=== PATIENT | male | born 1980 ===

== ENCOUNTER 2019-09-04 15:45 | Emergency (ER) | payer BC ==
[2019-09-04 16:32] VITALS: BP 125/87
[2019-09-04] MEDS ORDERED: Naproxen TAB* 250 MG PO ONE (16:38)
--- NOTE | 2019-09-04 18:22 | UC ---
Upper Extremity HPI - HPI Summary HPI Summary: 39-year-old male comes in with a chief complaint of right elbow and right fifth finger pain. Patient fell just prior to arrival he tripped and fell from a standing position. Pain is worse at the right elbow. Also has swelling of the right fifth finger. No weakness or numbness but it does hurt to move the right elbow or right fifth finger. Pain does radiate up into the right shoulder. Denies any other significant injury. Denies any loss of consciousness - History of Current Complaint Chief Complaint: UCUpperExtremity Stated Complaint: FALL RIGHT ELBOW AND HAND INJURY Time Seen by Provider: 09/04/19 17:40 Pain Intensity: 7 - Allergies/Home Medications Allergies/Adverse Reactions: Allergies Allergy/AdvReac Type Severity Reaction Status Date / Time No Known Allergies Allergy Verified 09/04/19 16:32 Home Medications: Home Medications Atorvastatin* [Lipitor*] 20 mg PO DAILY 09/04/19 [History Confirmed 09/04/19] Ibuprofen TAB* [Motrin TAB* 800 MG] 800 mg PO Q6H PRN 09/04/19 [History Confirmed 09/04/19] Lisinopril TAB* [Prinivil TAB*] 20 mg PO DAILY 09/04/19 [History Confirmed 09/04] Sertraline* [Zoloft*] 100 mg PO DAILY 09/04/19 [History Confirmed 09/04/19] amLODIPine TAB* [Norvasc 5 mg TAB*] 2.5 mg PO DAILY 09/04/19 [History Confirmed 09/04/19] PMH/Surg Hx/FS Hx/Imm Hx Previously Healthy: Yes Endocrine History: Dyslipidemia Cardiovascular History: Hypertension - Surgical History Surgical History: Yes Surgery Procedure, Year, and Place: skin, vasectomy - Family History Known Family History: Positive: Non-Contributory - Social History Alcohol Use: Daily Substance Use Type: None Smoking Status (MU): Never Smoked Tobacco Review of Systems All Other Systems Reviewed And Are Negative: Yes Constitutional: Positive: Negative Skin: Positive: Other - SEE HPI Eyes: Positive: Negative ENT: Positive: Negative Respiratory: Positive: Negative Cardiovascular: Positive: Negative Gastrointestinal: Positive: Negative Motor: Positive: Other - SEE HPI Neurovascular: Positive: Negative Musculoskeletal: Positive: Other: - SEE HPI Neurological: Positive: Negative Psychological: Positive: Negative Is Patient Immunocompromised?: No Physical Exam Triage Information Reviewed: Yes Appearance: Well-Appearing, Well-Nourished, Pain Distress - Mild with any range of motion of the right hand or elbow. Vital Signs: Initial Vital Signs Temp 98.3 F 09/04/19 16:26 Pulse 90 09/04/19 16:26 Resp 18 09/04/19 16:26 BP 125/87 09/04/19 16:26 Pulse Ox 98 09/04/19 16:26 Vital Signs Reviewed: Yes Eye Exam: Normal Eyes: Positive: Conjunctiva Clear Neck: Positive: Supple, Nontender Respiratory: Positive: No respiratory distress Musculoskeletal: Positive: Other: - Ecchymosis swelling of the right fifth finger. There is normal sensation in the finger normal capillary refill. Normal radial pulse on the right. Without movement of the right wrist and forearm are nontender until you get to the right elbow and the patient is exquisitely tender in the lateral aspect right elbow. Right shoulder and clavicle and scapula are all nontender to palpation. Patient minimizes range of motion of the right shoulder elbow wrist and fingers secondary to pain. Neurological: Positive: Alert Psychological: Positive: Age Appropriate Behavior Skin: Positive: Other - Ecchymosis of the right fifth finger Upper Extremity Course/Dx - Course Course Of Treatment: Peanut Sheller: Pari Sol S, ([id number]) Ticket Puller: LEIDY (LEIDY) Report Date: 09/04/2019 17:40:00 Report Status: Final Start of Report Content Patient Name: CORNELIO IBRAHIM Medical Record#: [id number] Ordering Physician: Christoph Alvarenga MD Acct.#: [id number] : Age: 39 Sex: M Location: [facility] Exam Date: 09/04/19 1716 ADM Status: REG ER Order Information: HAND - RIGHT MINIMUM 3 VIEWS Accession Number: [id number] CPT: 82311 Indication: Hand injury. 3 views of the right hand demonstrates a fracture through the proximal and of the proximal phalanx of the fifth digit. Slight dorsal angulation of the distal fracture fragment is noted. IMPRESSION: Fracture through the shaft and base of the proximal end of the proximal phalanx of the fifth digit with slight dorsal angulation. < Electronically signed by Pari Sol MD in OV> 09/04/191735 Dictated By: Pari Sol MD Dictated Date/Time: 09/04/191734 Transcribed Date/Time: 09/04/191734 Copy to: CC:[facility]; Joie Dejesus MD; Christoph Alvarenga MD Imaging - [facility] Imaging - [facility] [address] [place] [address] ph [phone]) ph ([phone]) ph ([phone]) End of Report Content ========= Peanut Sheller: Pari Sol S, ([id number]) Ticket Puller: LEIDY, (NUANCE) Report Date: 09/04/2019 17:39:00 Report Status: Final Start of Report Content Patient Name: CORNELIO IBRAHIM Medical Record#: [id number] Ordering Physician: Christoph Alvarenga MD Acct.#: [id number] : Age: 39 Sex: M Location: [facility] Exam Date: 09/04/191707 ADM Status: REG ER Order Information: ELBOW RIGHT 3+ VWS Accession Number: [id number] CPT: 03350 Indication: Right elbow pain. 4 views of the right elbow demonstrates fracture of the right capitellum. Overriding of the fracture fragments is noted. There is likely a volar displacement of the fracture fragments with joint effusion. IMPRESSION: Fracture of the capitellum with overriding of the fracture fragments and likely volar displacement. Joint effusion is noted. <Electronically signed by Pari Sol MD in OV> 09/04/191734 Dictated By: Pari Sol MD Dictated Date/Time: 09/04/191732 Transcribed Date/Time: 09/04/191732 Copy to: CC:[facility]; Joie Dejesus MD; Christoph Alvarenga MD Imaging - [facility] Imaging [facility] [address] [address] ph [phone]) ph ([phone] ph ) End of Report Content I discussed the x-rays with the patient. I placed the patient in a posterior elbow splint that extended into an ulnar gutter that included his right fourth and fifth fingers. Patient is neurovascularly intact on initial exam and after placement of splint by myself. I also discussed the elbow x-rays with the orthopedist paleontological helper to ensure that he follow up in 2 days the office was appropriate for the elbow fracture since tomorrow is Thanksgiving. The orthopedist on-call affirmed that a 2 day follow-up is appropriate as long as the patient is neurovascular intact. I discussed all this with the patient and let him know that if he did have any problems with circulation or loss of sensation he needed to get reevaluated again right away. - Differential Dx/Diagnosis Provider Diagnosis: Closed fracture of phalanx of right little finger, Elbow fracture, right Discharge ED - Sign-Out/Discharge Documenting (check all that apply): Patient Departure All imaging exams completed and their final reports reviewed: Yes - Discharge Plan Condition: Stable Disposition: HOME Patient Education Materials: Finger Fracture (ED), Elbow Fracture (ED) Referrals: Joie Dejesus MD [Primary Care Provider] - Keith Scruggs MD [Medical Doctor] - Additional Instructions: FOLLOW UP WITH ORTHOPEDICS. GET REEVALUATED SOONER IF NOT IMPROVED OR WORSE; PAIN, LOSS OF SENSATION OR BLOOD CIRCULATION OR ANY QUESTIONS OR CONCERNS. - Billing Disposition and Condition Condition: STABLE Disposition: Home
--- OUTSIDE RECORDS SUMMARY | 2019-09-10 14:07 | XMS REPORT | Continuity of Care Document ---
:1980 External Reference #:[id number] Author Name ROSA ISELA Singh (transmitted by agent of provider Rachel Valenzuela) Address [address] [facility] [place] [address] Care Team Providers Name Role Phone Joie Dejesus MD - Internal Medicine Care Team Information Field Irrigation Worker Problems Description No Information Available Social History Type Date Description Comments Sex Unknown ETOH Use Occasionally consumes alcohol Tobacco Use Start: Unknown Patient has never smoked Smoking Status Reviewed: 09/06/19 Patient has never smoked Exercise Type/Frequency Exercises sporadically Allergies, Adverse Reactions, Alerts Description No Known Drug Allergies Medications Active Medications SIG Qnty Indications Ordering Provider Date Sertraline HCL 1 po qd 30tabs Unknown 100mg Tablets Lisinopril 1 by mouth every Unknown 20mg Tablets day Amlodipine Besylate 1 by mouth every Unknown 2.5mg day Tablets Multivitamin Adults once daily Unknown Tablets Naproxen Sodium take 1 tab twice Unknown 220mg a day as needed Capsules for pain take with food Atorvastatin Calcium Take 1 Tablet By Unknown 40mg Mouth Every Day Tablets Immunizations Description No Information Available Vital Signs Date Vital Result Comment 09/06/2019 1:34pm Height 71 inches 5'11" Weight 250.00 lb Heart Rate 100 /min BP Systolic 142 mmHg BP Diastolic 90 mmHg Respiratory Rate 18 /min Body Temperature 97.8 F Pain Level 3 BMI (Body Mass Index) 34.9 kg/m2 12/31/2010 11:42am Height 71 inches 5'11" Weight 206.00 lb Heart Rate 80 /min BP Systolic 140 mmHg BP Diastolic 90 mmHg BMI (Body Mass Index) 28.7 kg/m2 Results Description No Information Available Procedures Description No Information Available Medical Devices Description No Information Available Encounters Description No Information Available Assessments Date Code Description Provider 09/06/2019 S42.451A Displaced fracture of lateral condyle of right ROSA ISELA Singh humerus, initial encounter for closed fracture Plan of Treatment Future Appointment(s):09/11/2019 10:00 am - Eleazar Brar MD at [facility]/06/2019 - ALAN Singh42.451A Displaced fracture of lateral condyle of right humerus, initial encounter for closed fractureNew Xrays :CT Extremity Upper Right Wo, Ordered: 09/06/19Follow up:Follow up: First Available melba Brar Functional Status Description No Information Available Mental Status Description No Information Available Referrals Description No Information Available
== END 2019-09-04 19:04 | disposition home or self-care (01) ==
LOC: UCEAST 15:45
DX: S62.616A Displaced fracture of proximal phalanx of right little finger, initial encounter for closed fracture (principal); S42.451A Displaced fracture of lateral condyle of right humerus, initial encounter for closed fracture; M25.421 Effusion, right elbow; W01.0XXA Fall on same level from slipping, tripping and stumbling without subsequent striking against object, initial encounter; Y92.9 Unspecified place or not applicable; I10 Essential (primary) hypertension; E78.5 Hyperlipidemia, unspecified; Z79.899 Other long term (current) drug therapy
CPT/HCPCS: 25600; 99213; A9270-GY; G0463

== ENCOUNTER 2019-09-12 12:41 | Day surgery (SDC) | payer BC ==
[~2019-09-12 12:41] MED LIST: Buffered Lidocaine 1% SYRIN* 1 ML/SYRINGE INTRADERM ONE; Famotidine IV* 10 MG/ML 2 ML (20 mg) IV ONE; Famotidine IV* 10 MG/ML 2 ML (20 mg) ONE; Lactated Ringers 1000 ML Bag* 1,000 ML IV SCH
[2019-09-12] MEDS ORDERED: ceFAZolin 2 GM in NS PREMIX(*) 2 GM/100 ML BAG IVPB ONE (12:48)
[2019-09-12] MEDS ORDERED: Bupivacaine 0.25% SDV* 30 ML ONE ×2 (16:02→19:34)
[2019-09-12] MEDS ORDERED: Midazolam* 1 MG/ML 5 ML VIAL (5 MG) ONE (16:09)
[2019-09-12] MEDS ORDERED: fentaNYL* 50 MCG/ML 2 ML VIAL (100 MCG VIAL) ONE ×3 (16:26→17:50)
[2019-09-12] MEDS ORDERED: Dexamethasone IV* 4 MG/ML 1 ML (4 MG) ONE (16:37)
[2019-09-12] MEDS ORDERED: Ketorolac INJ* 30 MG/ML 1 ML VIAL ONE (16:37)
[2019-09-12] MEDS ORDERED: Lidocaine 2% PF * 5 ML VIAL ONE (16:37)
[2019-09-12] MEDS ORDERED: Propofol* 10 MG/ML 20 ML BTL ONE ×2 (16:37→17:50)
[2019-09-12] MEDS ORDERED: Ondansetron INJ* 2 MG/ML VIAL ONE (16:37)
[2019-09-12] MEDS ORDERED: Midazolam* 1 MG/ML 2 ML VIAL (2 MG) ONE (17:51)
[2019-09-12] MEDS ORDERED: HYDROmorphone INJ* 0.5 MG/0.5 ML SYRINGE ONE ×2 (18:19→19:43)
[2019-09-12] MEDS ORDERED: DiMENhydriNATE IV* 50 MG/ML VIAL IV PUSH PRN (19:10)
[2019-09-12] MEDS ORDERED: Naloxone* 0.4 MG/ML 1 ML VIAL IV PRN (19:10)
[2019-09-12] MEDS ORDERED: HYDROcodone/ACETAMIN 5-325 MG* 1 TAB PO PRN (19:10)
[2019-09-12] MEDS ORDERED: HYDROcodone/ACETAMIN 5-325 MG* 1 TAB ONE (20:23)
[2019-09-12] MEDS ORDERED: HYDROmorphone INJ1* 1 MG/ML SYRINGE ONE (20:23)
[2019-09-12] MEDS: HYDROmorphone INJ1* 1 MG/ML SYRINGE IV PRN ×5 (20:23→20:49)
[2019-09-12 22:15] VITALS: BP 155/94
--- NOTE | 2019-09-13 03:52 | OP ---
DATE OF OPERATION: 09/12/19 [facility] DATE OF : 84 SURGEON: Eleazar Brar MD CLINICAL QUALITY RN: ROSA ISELA Singh ANESTHESIOLOGIST: Dr. Dawn. ANESTHESIA: General. PRE-OP DIAGNOSES: 1. Right displaced elbow capitellar fracture. 2. Right small finger proximal phalanx displaced fracture. POST-OP DIAGNOSES: 1. Right displaced elbow capitellar fracture. 2. Right small finger proximal phalanx displaced fracture. OPERATIVE PROCEDURE: 1. Open reduction internal fixation of right distal humerus displaced capitellum fracture with mini Acutrak headless compression screws. 2. Open reduction internal fixation of right small finger proximal phalanx fracture. INDICATIONS: Rinku has the aforementioned injuries. I talked about pinning versus plating the finger. I thought that we could probably get him moving earlier and it would help with this rehab, so we went ahead and plated the finger. He understands the risk of stiffness with both injuries as well as multiple other potential risks. He wished to proceed. ESTIMATED BLOOD LOSS: 2 mL. COMPLICATIONS: None. FINDINGS: See above and below. DESCRIPTION OF PROCEDURE: Mr. Graves was seen in the preoperative holding area. The correct side, site, and procedure were identified. We came back to the operating room. The arm was prepped and draped in the usual fashion. A time-out was performed. The arm was exsanguinated with the Esmarch and the tourniquet was inflated to 250 mmHg. I made a lateral incision over the elbow joint. Dissection was carried down. Full-thickness flap was raised. I used a Nahomy approach to stay just anterior to the anconeus to approach the elbow joint. The annular ligament was released. The lateral capsule was opened. The fracture hematoma was evacuated. The soft tissue around the margins of the fracture was removed to expose the fracture edges. The capitulum was reduced and then pinned into place with the guidewires placed percutaneously. Initially, I placed guidewires for a 3.0 Synthes headless compression screw. Once I had the fracture reduced and pinned and clamped, I went ahead and drilled. When attempted to place the first Synthes headless compression screw, it would not go all the way down and so I removed it and decided to go with Acutrak screw. I placed the mini Acutrak screw in the same drill hole as it was the correct size and got excellent bite on that screw. I then drilled the more proximal hole and placed a 22 mini Acutrak screw. These were both size 22. I then drilled one more that was a bit more medial near the piece of the fragment that extended towards the trochlea. The first 2 screws were size 20 mm and then this last one was a 22-mm screw. There was a piece of comminution in the anterior trochlea that was excised. There was some posterior comminution in the capitellar fragment that was all excised. The wound was then irrigated out. Final mini C-arm fluoroscopy confirmed the alignment. The tendon was repaired and the capsule was closed with 0 Vicryl suture. Subcutaneous tissue was reapproximated with 3-0 Vicryl suture. Skin was closed with adali. Tourniquet was deflated as we were at 105 minutes roughly on the tourniquet at this point. The two little poke holes that I used to place the screws, anterior and radial, were closed as well. After a 15-minute tourniquet holiday, I re-exsanguinated the arm and inflated the tourniquet. I made a longitudinal incision over the dorsum of the proximal phalanx. The central slip was incised longitudinally. Subperiosteal dissection exposed the fracture, pulled on the bone to reduce the fracture. I placed a clamp. It was looking good at this point, so I placed a 1.5-mm countersunk lag screw. There was comminution in the base. I checked AP and lateral imaging. This showed good alignment. There was just a small step-off on the anterior most cortex. It was difficult to reach that. It was sitting underneath the tendon sheath. This was difficult to get clamp and had a very nice lag screw. I did not think it was worth changing that for that 1 mm of anterior step-off, so I went ahead and then took a T-plate out of the 1.5-mm tray off the Synthes variable angle hand set and clipped into size, placed 1 screw in the oblong hole. I confirmed the alignment on mini C-arm fluoroscopy. I bent down the 2 wing holes just a little bit so it fit nicely on the bone. I then placed some variable angle locking screws proximally through the comminution in the proximal fragment and then cortical screws distally. Final mini C-arm fluoroscopy revealed good alignment and stable fixation with good screw length. My initial lag screw was 12 mm that was just one too long, so I switched it out for an 11 mm. Clinical alignment was very nice. The wound was irrigated out. The periosteum was closed over the plate to the extent possible with 5-0 Prolene suture. The tendon was repaired with 4-0 Prolene suture with knots buried. Skin was closed with 4-0 nylon. 0.25% Marcaine had been infiltrated about the finger. 0.25% Marcaine was infiltrated about the elbow. Wounds were dressed with Xeroform, 4x4s, sterile Webril, and then a long-arm splint with lateral buttress was applied. He was taken to the recovery room in stable condition. [id number] #: [id number] MTDD
== END 2019-09-12 22:17 | disposition home or self-care (01) ==
LOC: OREAST 12:41
PROVIDERS: ATTEND Orthopaedic Surgery Hand Surgery
PROC: 0PSF04Z Reposition Right Humeral Shaft with Internal Fixation Device, Open Approach (ICD-10-PCS; principal; 2019-09-12 14:15)
PROC: 0PST04Z Reposition Right Finger Phalanx with Internal Fixation Device, Open Approach (ICD-10-PCS; 2019-09-12 14:15)
DX: S42.451A Displaced fracture of lateral condyle of right humerus, initial encounter for closed fracture (principal); S62.616A Displaced fracture of proximal phalanx of right little finger, initial encounter for closed fracture; X58.XXXA Exposure to other specified factors, initial encounter; Y92.9 Unspecified place or not applicable; I10 Essential (primary) hypertension; E78.5 Hyperlipidemia, unspecified; F41.9 Anxiety disorder, unspecified; G47.33 Obstructive sleep apnea (adult) (pediatric)
CPT/HCPCS: 76000; J0690; J1100; J1170; J1885; J2250; J2405; J2704; J3010; J3490